=== PATIENT | female | born 1945 | race Caucasian/White ===

== ENCOUNTER 2020-04-21 11:51 | Inpatient (IN) ==
[2020-04-21] MEDS ORDERED: Isovue-370 500 ML BOTTLE IVP ONE (13:22)
[2020-04-21] MEDS ORDERED: *HR* FentaNYL (PF) 100 MCG/2 ML VIAL IVP ONE (13:29)
[2020-04-21] MEDS ORDERED: 0.9 % Sodium Chloride 1,000 ML IVC ONE (13:29)
[2020-04-21] MEDS ORDERED: Ondansetron 4 MG/2 ML VIAL IVP ONE (13:29)
[2020-04-21 13:46] LABS: Basophils % 0.2 %; Eosinophils # 0.1 K/mcL (0.0-0.6); Eosinophils % 0.6 %; Hemoglobin 14.8 g/dL (11.5-15.4); Immature Granulocytes % 0.7 % (0-4); Lymphocytes # 1.1 K/mcL (0.6-4.6); Lymphocytes % 10.7 %; Mean Corpuscular HGB Conc 34.4 g/dL (31.6-35.5); Mean Platelet Volume 10.7 fL (9.4-12.4); Monocytes # 0.4 K/mcL (0.0-1.3); Neutrophils # 8.9 K/mcL (1.6-8.9); Platelet Count 188 K/mcL (140-400); Red Blood Count 4.94 M/mcL (3.82-4.97); Red Cell Distribution Width 13.2 % (11.5-14.5); Segmented Neutrophils % 83.8 %; White Blood Count 10.6 K/mcL (4.3-11.1)
[2020-04-21 13:50] LABS: INR 1.3
[2020-04-21 13:53] LABS: Activated Partial Thrombo Time 33.8 Seconds (26.0-36.0)
[2020-04-21 13:56] LABS: Alanine Aminotransferase 15 Units/L (7-52); Albumin 4.4 g/dL (3.5-5.7); Albumin/Globulin Ratio 1.4 (1.1-2.2); Alkaline Phosphatase 35 Units/L (34-104); Amylase 100 Units/L (29-103); Aspartate Amino Transferase 19 Units/L (13-39); BUN/Creatinine Ratio 20 (6-26); Bilirubin,Direct 0.1 mg/dL (0.0-0.2); Bilirubin,Indirect 0.5 mg/dL (0.0-1.0); Bilirubin,Total 0.6 mg/dL (0.3-1.0); Blood Urea Nitrogen 22 mg/dL (8-23); Carbon Dioxide 26 mEq/L (23-29); Chloride 102 mEq/L (98-107); Globulin 3.2 g/dL (2.4-3.5); Glucose 132 mg/dL (70-105); Lipase 49 Units/L (11-82); Osmolality,Calculated 291 (280-300); Potassium 3.4 mEq/L (3.5-5.1); Sodium 138 mEq/L (136-145); Total Protein 7.6 g/dL (6.4-8.9); Troponin I < 0.03 ng/mL (< 0.04); eGFR For African Americans 58 (> 60); eGFR For Non-African Americans 48 (> 60)
[2020-04-21 14:18] LABS: Bacteria,Urine Few per hpf (None-Few); Bilirubin,Urine Negative (Negative); Blood,Urine Negative (Negative); Clarity,Urine Clear (Clear); Color,Urine Light-Yellow (Yellow); Glucose,Urine (UA) Normal (Normal); Hyaline Casts,Urine Few per lpf (None Seen); Ketones,Urine Negative (Negative); Leukocyte Esterase,Urine Negative (Negative); Mucus,Urine Few per lpf (None-Few); Nitrite,Urine Negative (Negative); PH,Urine 6.5 pH Units (5.0-8.0); Protein,Urine 200 mg/dL (Neg-Trace); RBC,Urine 0-3 per hpf (0-3); Squamous Epithelial Cell,Urine Moderate per hpf (None-Few); Urobilinogen,Urine Normal (Normal); WBC,Urine 0-3 per hpf (0-3)
[2020-04-21] MEDS ORDERED: Morphine Sulfate 2 MG/ML SYRINGE IVP ONE (16:18)
[2020-04-21] MEDS ORDERED: *HR* Metoprolol 5 MG/5 ML VIAL IVP ONE (16:27)
[2020-04-21] MEDS ORDERED: Aspirin 81 MG TAB.CHEW PO ONE (17:27)
[2020-04-21] MEDS: Nitroglycerin 0.4 MG TAB.SUBL SL SCH ×2 (17:58→18:43)
[2020-04-21] MEDS ORDERED: Naloxone 0.4 MG/ML INJ IVP PRN (18:34)
[2020-04-21] MEDS ORDERED: Ondansetron 4 MG/2 ML VIAL IVP PRN (18:34)
[2020-04-21] MEDS ORDERED: Perflutren Lipid Microsphere 1.3 ML in 0.9 % Sodium Chloride 8.7 ML IVP PRN (18:57)
[2020-04-21] MEDS ORDERED: Acetaminophen IV 1,000 MG/100 ML BAG IVPB ONE (19:14)
[2020-04-21] MEDS: Metoprolol 100 MG TABLET PO SCH (20:35)
[2020-04-21] MEDS: 0.9 % Sodium Chloride 1,000 ML IVC SCH (20:36)
[2020-04-22 05:42] LABS: Basophils % 0.1 %; Hematocrit 41.8 % (35.3-44.9); Hemoglobin 14.2 g/dL (11.5-15.4); Immature Granulocytes % 0.7 % (0-4); Lymphocytes # 1.2 K/mcL (0.6-4.6); Lymphocytes % 5.7 %; Mean Corpuscular Hemoglobin 29.5 pg (28.0-33.3); Mean Corpuscular Volume 86.9 fL (83.0-100.0); Mean Platelet Volume 10.5 fL (9.4-12.4); Monocytes # 1.5 K/mcL (0.0-1.3); Monocytes % 7.2 %; Neutrophils # 17.7 K/mcL (1.6-8.9); Platelet Count 225 K/mcL (140-400); Red Blood Count 4.81 M/mcL (3.82-4.97); Red Cell Distribution Width 13.5 % (11.5-14.5); Segmented Neutrophils % 86.3 %
[2020-04-22 05:43] LABS: White Blood Count 20.5 K/mcL (4.3-11.1)
[2020-04-22 06:03] LABS: BUN/Creatinine Ratio 20 (6-26); Blood Urea Nitrogen 21 mg/dL (8-23); Calcium 9.1 mg/dL (8.6-10.3); Carbon Dioxide 22 mEq/L (23-29); Chloride 105 mEq/L (98-107); Glucose 130 mg/dL (70-105); Magnesium 1.5 mg/dL (1.6-2.6); Osmolality,Calculated 291 (280-300); Phosphorous 3.6 mg/dL (2.7-4.5); Potassium 3.8 mEq/L (3.5-5.1); Sodium 138 mEq/L (136-145); eGFR For African Americans > 60 (> 60); eGFR For Non-African Americans 51 (> 60)
[2020-04-22] MEDS ORDERED: *HR* Rivaroxaban 10 MG TABLET PO SCH (09:00)
[2020-04-22] MEDS: 0.9 % Sodium Chloride 1,000 ML IVC SCH ×2 (10:36→23:12)
[2020-04-22] MEDS: hydroCHLOROthiazide 25 MG TABLET PO SCH (12:08)
[2020-04-22] MEDS: Metoprolol 100 MG TABLET PO SCH ×2 (12:09→19:45)
[2020-04-22] MEDS: Ampicillin/Sulbactam 3,000 MG in 0.9 % Sodium Chloride Mini Bag 100 ML IVPB SCH ×2 (18:25→23:13)
[2020-04-23 02:36] LABS: Hematocrit 37.3 % (35.3-44.9); Mean Corpuscular HGB Conc 33.5 g/dL (31.6-35.5); Mean Corpuscular Hemoglobin 29.4 pg (28.0-33.3); Mean Corpuscular Volume 87.8 fL (83.0-100.0); Mean Platelet Volume 10.7 fL (9.4-12.4); Platelet Count 169 K/mcL (140-400); Red Blood Count 4.25 M/mcL (3.82-4.97); Red Cell Distribution Width 13.8 % (11.5-14.5); White Blood Count 19.2 K/mcL (4.3-11.1)
[2020-04-23 02:39] LABS: Hemoglobin 12.5 g/dL (11.5-15.4)
[2020-04-23 02:54] LABS: Alanine Aminotransferase 21 Units/L (7-52); Albumin 3.6 g/dL (3.5-5.7); Albumin/Globulin Ratio 1.1 (1.1-2.2); Alkaline Phosphatase 25 Units/L (34-104); Aspartate Amino Transferase 28 Units/L (13-39); Bilirubin,Total 1.3 mg/dL (0.3-1.0); Blood Urea Nitrogen 20 mg/dL (8-23); Calcium 8.5 mg/dL (8.6-10.3); Carbon Dioxide 24 mEq/L (23-29); Chloride 105 mEq/L (98-107); Globulin 3.2 g/dL (2.4-3.5); Glucose 105 mg/dL (70-105); Osmolality,Calculated 291 (280-300); Potassium 3.3 mEq/L (3.5-5.1); Sodium 139 mEq/L (136-145); Total Protein 6.8 g/dL (6.4-8.9)
[2020-04-23 04:06] LABS: BUN/Creatinine Ratio 19 (6-26); eGFR For African Americans > 60 (> 60); eGFR For Non-African Americans 50 (> 60)
[2020-04-23] MEDS: Ampicillin/Sulbactam 3,000 MG in 0.9 % Sodium Chloride Mini Bag 100 ML IVPB SCH ×4 (05:11→23:02)
[2020-04-23] MEDS: Metoprolol 100 MG TABLET PO SCH ×2 (07:38→19:34)
[2020-04-23] MEDS: hydroCHLOROthiazide 25 MG TABLET PO SCH (07:38)
[2020-04-23] MEDS ORDERED: *HR* HYDROmorphone PF 0.5 MG/0.5 ML SYRINGE IVP PRN (10:48)
[2020-04-23] MEDS ORDERED: *HR* OxyCODONE Immed Rel 5 MG TABLET PO PRN (10:48)
[2020-04-23] MEDS ORDERED: Promethazine 6.25 MG in Water for inj. (sterile) 20 ML IVPB PRN (10:48)
[2020-04-23] MEDS ORDERED: Isovue-300 50ML VIAL ONE (11:00)
[2020-04-23] MEDS ORDERED: CefOXitin 1,000 MG VIAL ONE (11:01)
[2020-04-23] MEDS ORDERED: *HR* FentaNYL (PF) 100 MCG/2 ML VIAL ONE (11:05)
[2020-04-23] MEDS ORDERED: Lidocaine -MPF 2% 2 ML VIAL ONE (11:05)
[2020-04-23] MEDS ORDERED: Ondansetron 4 MG/2 ML VIAL ONE (11:05)
[2020-04-23] MEDS ORDERED: Dexamethasone 4 MG/ML VIAL ONE (11:05)
[2020-04-23] MEDS ORDERED: *HR* Propofol 200 MG/20 ML VIAL IVP ONE (11:05)
[2020-04-23] MEDS ORDERED: *HR* Succinylcholine 200 MG/10 ML VIAL IVP ONE (11:05)
[2020-04-23] MEDS ORDERED: Lidocaine HCL 4 ML Topical Solution (Laryng-O-Jet Kit Sterile Pak) TP ONE (11:05)
[2020-04-23] MEDS ORDERED: *HR* Rocuronium Bromide 50 MG/5 ML VIAL ONE (11:05)
[2020-04-23] MEDS ORDERED: Acetaminophen IV 1,000 MG/100 ML BAG IVPB ONE (11:30)
[2020-04-23] MEDS ORDERED: *HR* HYDROMORPHONE 2 MG/ML VIAL ONE (11:56)
[2020-04-23] MEDS ORDERED: *HR* Labetalol 20 MG/4 ML SYRINGE IVP ONE (12:12)
[2020-04-23] MEDS ORDERED: Naloxone 0.4 MG/ML INJ IVP PRN (13:53)
[2020-04-23] MEDS: 0.9 % Sodium Chloride 1,000 ML IVC SCH ×2 (13:55→17:39)
[2020-04-23] MEDS ORDERED: Potassium Chloride 40 MEQ, Lidocaine 1% 2 ML in 0.9 % Sodium Chloride 500 ML IVPB ONE (17:45)
[2020-04-24 04:32] LABS: Hematocrit 35.5 % (35.3-44.9); Hemoglobin 11.6 g/dL (11.5-15.4); Mean Corpuscular HGB Conc 32.7 g/dL (31.6-35.5); Mean Corpuscular Hemoglobin 28.7 pg (28.0-33.3); Mean Corpuscular Volume 87.9 fL (83.0-100.0); Mean Platelet Volume 10.4 fL (9.4-12.4); Platelet Count 163 K/mcL (140-400); Red Blood Count 4.04 M/mcL (3.82-4.97); Red Cell Distribution Width 13.8 % (11.5-14.5); White Blood Count 15.7 K/mcL (4.3-11.1)
[2020-04-24] MEDS: 0.9 % Sodium Chloride 1,000 ML IVC SCH ×2 (04:51→20:19)
[2020-04-24] MEDS: Ampicillin/Sulbactam 3,000 MG in 0.9 % Sodium Chloride Mini Bag 100 ML IVPB SCH ×4 (04:51→23:32)
[2020-04-24] MEDS: Latanoprost 2.5 ML BOTTLE BOTH EYES SCH ×2 (04:52→20:21)
[2020-04-24 04:53] LABS: Albumin 3.5 g/dL (3.5-5.7); Albumin/Globulin Ratio 1.1 (1.1-2.2); Bilirubin,Total 0.6 mg/dL (0.3-1.0); Calcium 8.2 mg/dL (8.6-10.3); Globulin 3.3 g/dL (2.4-3.5); Total Protein 6.8 g/dL (6.4-8.9)
[2020-04-24] MEDS: Metoprolol 100 MG TABLET PO SCH ×2 (09:59→20:20)
[2020-04-24] MEDS: hydroCHLOROthiazide 25 MG TABLET PO SCH (10:00)
[2020-04-24] MEDS: *HR* Rivaroxaban 10 MG TABLET PO SCH (17:40)
[2020-04-25 01:30] LABS: Hematocrit 34.9 % (35.3-44.9); Hemoglobin 11.4 g/dL (11.5-15.4); Mean Corpuscular HGB Conc 32.7 g/dL (31.6-35.5); Mean Corpuscular Hemoglobin 29.4 pg (28.0-33.3); Mean Corpuscular Volume 89.9 fL (83.0-100.0); Mean Platelet Volume 10.7 fL (9.4-12.4); Platelet Count 197 K/mcL (140-400); Red Blood Count 3.88 M/mcL (3.82-4.97); Red Cell Distribution Width 13.6 % (11.5-14.5); White Blood Count 14.4 K/mcL (4.3-11.1)
[2020-04-25 04:14] LABS: Alanine Aminotransferase 33 Units/L (7-52); Albumin 3.3 g/dL (3.5-5.7); Alkaline Phosphatase 29 Units/L (34-104); Aspartate Amino Transferase 30 Units/L (13-39); BUN/Creatinine Ratio 21 (6-26); Bilirubin,Total 0.5 mg/dL (0.3-1.0); Blood Urea Nitrogen 21 mg/dL (8-23); Carbon Dioxide 26 mEq/L (23-29); Chloride 106 mEq/L (98-107); Globulin 3.2 g/dL (2.4-3.5); Glucose 121 mg/dL (70-105); Osmolality,Calculated 294 (280-300); Potassium 3.5 mEq/L (3.5-5.1); Sodium 140 mEq/L (136-145); Total Protein 6.5 g/dL (6.4-8.9); eGFR For African Americans > 60 (> 60); eGFR For Non-African Americans 55 (> 60)
[2020-04-25] MEDS: Ampicillin/Sulbactam 3,000 MG in 0.9 % Sodium Chloride Mini Bag 100 ML IVPB SCH ×4 (05:39→16:00)
[2020-04-25] MEDS: hydroCHLOROthiazide 25 MG TABLET PO SCH (09:10)
[2020-04-25] MEDS: Metoprolol 100 MG TABLET PO SCH ×2 (09:11→20:41)
[2020-04-25] MEDS: 0.9 % Sodium Chloride 1,000 ML IVC SCH (09:13)
[2020-04-25] MEDS: *HR* Rivaroxaban 10 MG TABLET PO SCH (15:59)
[2020-04-25] MEDS: Latanoprost 2.5 ML BOTTLE BOTH EYES SCH (20:43)
[2020-04-25] MEDS ORDERED: *HR* Labetalol 20 MG/4 ML SYRINGE IVP PRN (23:13)
[2020-04-25] MEDS ORDERED: Ketorolac 15 MG/ML VIAL IVP ONE (23:17)
[2020-04-26] MEDS: Simethicone 80 MG TAB.CHEW PO PRN ×2 (00:04→12:26)
[2020-04-26] MEDS: Ampicillin/Sulbactam 3,000 MG in 0.9 % Sodium Chloride Mini Bag 100 ML IVPB SCH ×4 (00:04→17:53)
[2020-04-26] MEDS: hydroCHLOROthiazide 25 MG TABLET PO SCH (08:24)
[2020-04-26] MEDS: Aspirin 81 MG TAB.CHEW PO SCH (08:24)
[2020-04-26] MEDS: Metoprolol 100 MG TABLET PO SCH ×2 (08:26→20:44)
[2020-04-26 09:13] LABS: Hematocrit 37.7 % (35.3-44.9); Hemoglobin 12.7 g/dL (11.5-15.4); Mean Corpuscular HGB Conc 33.7 g/dL (31.6-35.5); Mean Corpuscular Volume 86.1 fL (83.0-100.0); Mean Platelet Volume 10.2 fL (9.4-12.4); Platelet Count 209 K/mcL (140-400); Red Blood Count 4.38 M/mcL (3.82-4.97); Red Cell Distribution Width 13.2 % (11.5-14.5); White Blood Count 11.9 K/mcL (4.3-11.1)
[2020-04-26 09:32] LABS: Alanine Aminotransferase 69 Units/L (7-52); Albumin 3.5 g/dL (3.5-5.7); Alkaline Phosphatase 67 Units/L (34-104); Aspartate Amino Transferase 61 Units/L (13-39); BUN/Creatinine Ratio 21 (6-26); Bilirubin,Total 2.6 mg/dL (0.3-1.0); Blood Urea Nitrogen 18 mg/dL (8-23); Calcium 8.8 mg/dL (8.6-10.3); Carbon Dioxide 25 mEq/L (23-29); Chloride 102 mEq/L (98-107); Globulin 3.5 g/dL (2.4-3.5); Glucose 143 mg/dL (70-105); Osmolality,Calculated 286 (280-300); Potassium 3.4 mEq/L (3.5-5.1); Sodium 136 mEq/L (136-145); eGFR For African Americans > 60 (> 60); eGFR For Non-African Americans > 60 (> 60)
[2020-04-26] MEDS: *HR* OxyCODONE Immed Rel 5 MG TABLET PO PRN (12:21)
[2020-04-26] MEDS: polyethylene glycoL 3350 17 GM POWD.PACK PO PRN (12:24)
[2020-04-26] MEDS: Ondansetron 4 MG/2 ML VIAL IVP PRN (16:13)
[2020-04-26] MEDS: *HR* Rivaroxaban 10 MG TABLET PO SCH (17:31)
[2020-04-26] MEDS: Acetaminophen IV 1,000 MG/100 ML BAG IVPB SCH ×2 (17:32→23:43)
[2020-04-26] MEDS: Gabapentin 300 MG CAPSULE PO SCH (20:43)
[2020-04-26] MEDS: Latanoprost 2.5 ML BOTTLE BOTH EYES SCH (20:44)
[2020-04-27] MEDS: Ampicillin/Sulbactam 3,000 MG in 0.9 % Sodium Chloride Mini Bag 100 ML IVPB SCH ×4 (00:05→18:16)
[2020-04-27] MEDS: *HR* OxyCODONE Immed Rel 5 MG TABLET PO PRN ×3 (02:11→18:16)
[2020-04-27] MEDS: Acetaminophen IV 1,000 MG/100 ML BAG IVPB SCH ×3 (06:19→18:22)
[2020-04-27 06:44] LABS: Hematocrit 39.3 % (35.3-44.9); Hemoglobin 13.1 g/dL (11.5-15.4); Mean Corpuscular HGB Conc 33.3 g/dL (31.6-35.5); Mean Corpuscular Hemoglobin 29.3 pg (28.0-33.3); Mean Corpuscular Volume 87.9 fL (83.0-100.0); Mean Platelet Volume 10.2 fL (9.4-12.4); Platelet Count 238 K/mcL (140-400); Red Blood Count 4.47 M/mcL (3.82-4.97); Red Cell Distribution Width 13.2 % (11.5-14.5)
[2020-04-27] MEDS: Aspirin 81 MG TAB.CHEW PO SCH (08:35)
[2020-04-27] MEDS: Metoprolol 100 MG TABLET PO SCH ×2 (08:35→21:07)
[2020-04-27] MEDS: hydroCHLOROthiazide 25 MG TABLET PO SCH (08:35)
[2020-04-27 09:47] LABS: Alanine Aminotransferase 68 Units/L (7-52); Albumin 3.4 g/dL (3.5-5.7); Albumin/Globulin Ratio 1.1 (1.1-2.2); Alkaline Phosphatase 64 Units/L (34-104); Aspartate Amino Transferase 58 Units/L (13-39); BUN/Creatinine Ratio 23 (6-26); Bilirubin,Total 3.5 mg/dL (0.3-1.0); Blood Urea Nitrogen 23 mg/dL (8-23); Calcium 8.7 mg/dL (8.6-10.3); Carbon Dioxide 29 mEq/L (23-29); Chloride 99 mEq/L (98-107); Globulin 3.1 g/dL (2.4-3.5); Glucose 134 mg/dL (70-105); Osmolality,Calculated 286 (280-300); Potassium 3.4 mEq/L (3.5-5.1); Sodium 135 mEq/L (136-145); Total Protein 6.5 g/dL (6.4-8.9); eGFR For African Americans > 60 (> 60); eGFR For Non-African Americans 54 (> 60)
[2020-04-27] MEDS: Gabapentin 300 MG CAPSULE PO SCH ×3 (10:37→18:28)
[2020-04-27 15:22] LABS: Hematocrit 36.5 % (35.3-44.9); Hemoglobin 12.2 g/dL (11.5-15.4); Mean Corpuscular HGB Conc 33.4 g/dL (31.6-35.5); Mean Corpuscular Volume 86.7 fL (83.0-100.0); Mean Platelet Volume 10.2 fL (9.4-12.4); Platelet Count 256 K/mcL (140-400); Red Blood Count 4.21 M/mcL (3.82-4.97); Red Cell Distribution Width 13.3 % (11.5-14.5); White Blood Count 15.8 K/mcL (4.3-11.1)
[2020-04-27] MEDS: *HR* Rivaroxaban 10 MG TABLET PO SCH (18:21)
[2020-04-27] MEDS: amLODIPine 5 MG TABLET PO SCH (18:22)
[2020-04-27] MEDS: Simethicone 80 MG TAB.CHEW PO PRN (20:52)
[2020-04-27] MEDS: Latanoprost 2.5 ML BOTTLE BOTH EYES SCH (20:56)
[2020-04-27] MEDS: Morphine Sulfate 2 MG/ML SYRINGE IVP PRN (22:24)
[2020-04-28] MEDS: Acetaminophen IV 1,000 MG/100 ML BAG IVPB SCH ×4 (00:01→18:13)
[2020-04-28] MEDS: Ampicillin/Sulbactam 3,000 MG in 0.9 % Sodium Chloride Mini Bag 100 ML IVPB SCH ×4 (00:20→18:27)
[2020-04-28 02:20] LABS: Hematocrit 36.2 % (35.3-44.9); Mean Corpuscular HGB Conc 33.1 g/dL (31.6-35.5); Mean Corpuscular Hemoglobin 28.7 pg (28.0-33.3); Mean Corpuscular Volume 86.6 fL (83.0-100.0); Mean Platelet Volume 10.2 fL (9.4-12.4); Platelet Count 271 K/mcL (140-400); Red Blood Count 4.18 M/mcL (3.82-4.97); Red Cell Distribution Width 13.3 % (11.5-14.5); White Blood Count 18.7 K/mcL (4.3-11.1)
[2020-04-28 02:40] LABS: Albumin 3.3 g/dL (3.5-5.7); Calcium 8.7 mg/dL (8.6-10.3); Globulin 3.2 g/dL (2.4-3.5); Potassium 3.2 mEq/L (3.5-5.1); Total Protein 6.5 g/dL (6.4-8.9)
[2020-04-28] MEDS: Ondansetron 4 MG/2 ML VIAL IVP PRN (04:59)
[2020-04-28] MEDS: Morphine Sulfate 2 MG/ML SYRINGE IVP PRN ×5 (05:02→22:27)
[2020-04-28] MEDS: Simethicone 80 MG TAB.CHEW PO PRN ×2 (08:11→22:49)
[2020-04-28] MEDS: Metoprolol 100 MG TABLET PO SCH ×2 (08:11→22:26)
[2020-04-28] MEDS: Aspirin 81 MG TAB.CHEW PO SCH (08:11)
[2020-04-28] MEDS: hydroCHLOROthiazide 25 MG TABLET PO SCH (08:12)
[2020-04-28] MEDS: amLODIPine 5 MG TABLET PO SCH (08:12)
[2020-04-28] MEDS: Gabapentin 300 MG CAPSULE PO SCH ×3 (08:13→22:26)
[2020-04-28] MEDS: polyethylene glycoL 3350 17 GM POWD.PACK PO PRN (08:17)
[2020-04-28] MEDS ORDERED: Isovue-370 500 ML BOTTLE IVP ONE (08:43)
[2020-04-28] MEDS ORDERED: Isovue-370 500 ML BOTTLE PO ONE (11:49)
[2020-04-28] MEDS: *HR* Rivaroxaban 10 MG TABLET PO SCH (18:11)
[2020-04-28] MEDS: Latanoprost 2.5 ML BOTTLE BOTH EYES SCH (22:51)
[2020-04-29] MEDS: Acetaminophen IV 1,000 MG/100 ML BAG IVPB SCH ×4 (00:04→16:58)
[2020-04-29] MEDS: Ampicillin/Sulbactam 3,000 MG in 0.9 % Sodium Chloride Mini Bag 100 ML IVPB SCH ×4 (00:24→17:19)
[2020-04-29] MEDS: Ondansetron 4 MG/2 ML VIAL IVP PRN (00:53)
[2020-04-29] MEDS: *HR* OxyCODONE Immed Rel 5 MG TABLET PO PRN ×2 (00:54→05:28)
[2020-04-29] MEDS: Morphine Sulfate 2 MG/ML SYRINGE IVP PRN ×2 (06:18→11:31)
[2020-04-29 06:46] LABS: Hematocrit 38.2 % (35.3-44.9); Hemoglobin 12.5 g/dL (11.5-15.4); Mean Corpuscular HGB Conc 32.7 g/dL (31.6-35.5); Mean Corpuscular Hemoglobin 29.1 pg (28.0-33.3); Mean Platelet Volume 10.4 fL (9.4-12.4); Platelet Count 394 K/mcL (140-400); Red Blood Count 4.29 M/mcL (3.82-4.97); Red Cell Distribution Width 13.8 % (11.5-14.5); White Blood Count 23.5 K/mcL (4.3-11.1)
[2020-04-29 07:07] LABS: Albumin 3.2 g/dL (3.5-5.7); Bilirubin,Direct 1.4 mg/dL (0.0-0.2); Bilirubin,Indirect 1.4 mg/dL (0.0-1.0); Bilirubin,Total 2.8 mg/dL (0.3-1.0); Globulin 3.3 g/dL (2.4-3.5); Total Protein 6.5 g/dL (6.4-8.9)
[2020-04-29 07:08] LABS: Albumin 3.2 g/dL (3.5-5.7); Bilirubin,Total 2.8 mg/dL (0.3-1.0); Calcium 8.8 mg/dL (8.6-10.3); Globulin 3.3 g/dL (2.4-3.5); Total Protein 6.5 g/dL (6.4-8.9)
[2020-04-29] MEDS: Aspirin 81 MG TAB.CHEW PO SCH (07:18)
[2020-04-29] MEDS: hydroCHLOROthiazide 25 MG TABLET PO SCH (07:29)
[2020-04-29] MEDS: Metoprolol 100 MG TABLET PO SCH ×2 (07:30→20:12)
[2020-04-29] MEDS: amLODIPine 5 MG TABLET PO SCH (07:30)
[2020-04-29] MEDS: Gabapentin 300 MG CAPSULE PO SCH (07:30)
[2020-04-29] MEDS ORDERED: *HR* Succinylcholine 200 MG/10 ML VIAL IVP ONE (14:27)
[2020-04-29] MEDS ORDERED: Ondansetron 4 MG/2 ML VIAL ONE (14:27)
[2020-04-29] MEDS ORDERED: Lidocaine -MPF 4% 5 ML AMPUL ONE (14:27)
[2020-04-29] MEDS ORDERED: Dexamethasone 4 MG/ML VIAL ONE (14:27)
[2020-04-29] MEDS ORDERED: Lidocaine -MPF 2% 2 ML VIAL ONE (14:27)
[2020-04-29] MEDS ORDERED: *HR* FentaNYL (PF) 100 MCG/2 ML VIAL ONE (14:28)
[2020-04-29] MEDS ORDERED: *HR* Propofol 200 MG/20 ML VIAL IVP ONE (14:28)
[2020-04-29] MEDS ORDERED: Ringers Solution, Lactated 1,000 ML IVC SCH (15:00)
[2020-04-29] MEDS ORDERED: *HR* PHENYLEPHRINE 1,000 MCG/10 ML SYRINGE IVP ONE (15:24)
[2020-04-29] MEDS ORDERED: EPHEDrine 50 MG/ML VIAL ONE (15:24)
[2020-04-29] MEDS ORDERED: Indomethacin 50 MG SUPP.RECT RC ONE (15:35)
[2020-04-29] MEDS: *HR* Rivaroxaban 10 MG TABLET PO SCH (16:06)
[2020-04-29] MEDS ORDERED: 0.9 % Sodium Chloride 1,000 ML ONE (17:41)
[2020-04-29] MEDS ORDERED: 0.9 % Sodium Chloride 1,000 ML IVC SCH ×2 (17:45)
[2020-04-29] MEDS: Latanoprost 2.5 ML BOTTLE BOTH EYES SCH (20:09)
[2020-04-30] MEDS: Acetaminophen IV 1,000 MG/100 ML BAG IVPB SCH ×4 (00:21→18:22)
[2020-04-30] MEDS: Ampicillin/Sulbactam 3,000 MG in 0.9 % Sodium Chloride Mini Bag 100 ML IVPB SCH ×3 (00:22→18:24)
[2020-04-30 07:43] LABS: Basophils % 0.1 %; Eosinophils % 0.1 %; Immature Granulocytes % 1.6 % (0-4); Lymphocytes # 0.9 K/mcL (0.6-4.6); Lymphocytes % 5.6 %; Mean Corpuscular HGB Conc 31.9 g/dL (31.6-35.5); Mean Corpuscular Hemoglobin 29.1 pg (28.0-33.3); Mean Corpuscular Volume 91.4 fL (83.0-100.0); Mean Platelet Volume 10.5 fL (9.4-12.4); Monocytes # 0.8 K/mcL (0.0-1.3); Monocytes % 5.1 %; Neutrophils # 13.4 K/mcL (1.6-8.9); Platelet Count 283 K/mcL (140-400); Red Cell Distribution Width 13.9 % (11.5-14.5); Segmented Neutrophils % 87.5 %; White Blood Count 15.4 K/mcL (4.3-11.1)
[2020-04-30 07:45] LABS: Hemoglobin 10.2 g/dL (11.5-15.4)
[2020-04-30 07:54] LABS: Albumin 2.9 g/dL (3.5-5.7); Bilirubin,Direct 0.9 mg/dL (0.0-0.2); Bilirubin,Indirect 0.9 mg/dL (0.0-1.0); Bilirubin,Total 1.8 mg/dL (0.3-1.0); Potassium 4.1 mEq/L (3.5-5.1); Total Protein 5.9 g/dL (6.4-8.9)
[2020-04-30] MEDS: amLODIPine 5 MG TABLET PO SCH (10:42)
[2020-04-30] MEDS: Aspirin 81 MG TAB.CHEW PO SCH (10:42)
[2020-04-30] MEDS: Metoprolol 100 MG TABLET PO SCH ×2 (10:42→21:17)
[2020-04-30] MEDS ORDERED: *HR* OxyCODONE Immed Rel 5 MG TABLET PO PRN (10:48)
[2020-04-30 11:06] LABS: Phosphorous 6.4 mg/dL (2.7-4.5); Uric Acid 8.5 mg/dL (2.3-7.6)
[2020-04-30] MEDS ORDERED: *HR* Midazolam HCl 2 MG/2 ML VIAL IVP ONE (11:46)
[2020-04-30] MEDS ORDERED: *HR* FentaNYL (PF) 100 MCG/2 ML VIAL IVP ONE (11:46)
[2020-04-30] MEDS ORDERED: 0.9 % Sodium Chloride 500 ML ONE (11:59)
[2020-04-30 13:14] LABS: Vitamin D 25 Hydroxy 27 ng/mL (30-80)
[2020-04-30] MEDS: 0.9 % Sodium Chloride 1,000 ML IVC SCH (13:18)
[2020-04-30 13:42] LABS: Hepatitis B Surface Antigen Nonreactive (Nonreactive)
[2020-04-30 14:10] LABS: Hepatitis C Virus Antibody Nonreactive (Nonreactive)
[2020-04-30 14:13] LABS: Hepatitis A Antibody IgM Nonreactive (Nonreactive); Hepatitis B Core IgM Nonreactive (Nonreactive)
[2020-04-30] MEDS: Latanoprost 2.5 ML BOTTLE BOTH EYES SCH (21:47)
[2020-05-01] MEDS: 0.9 % Sodium Chloride 1,000 ML IVC SCH (00:35)
[2020-05-01] MEDS: Acetaminophen IV 1,000 MG/100 ML BAG IVPB SCH ×3 (01:01→11:38)
[2020-05-01 03:31] LABS: Basophils % 0.3 %; Eosinophils # 0.3 K/mcL (0.0-0.6); Eosinophils % 2.2 %; Hematocrit 27.7 % (35.3-44.9); Immature Granulocytes % 1.1 % (0-4); Lymphocytes # 1.3 K/mcL (0.6-4.6); Lymphocytes % 8.3 %; Mean Corpuscular HGB Conc 32.5 g/dL (31.6-35.5); Mean Corpuscular Hemoglobin 28.9 pg (28.0-33.3); Mean Corpuscular Volume 89.1 fL (83.0-100.0); Mean Platelet Volume 10.3 fL (9.4-12.4); Monocytes # 1.1 K/mcL (0.0-1.3); Monocytes % 6.9 %; Neutrophils # 12.5 K/mcL (1.6-8.9); Platelet Count 256 K/mcL (140-400); Red Blood Count 3.11 M/mcL (3.82-4.97); Red Cell Distribution Width 14.1 % (11.5-14.5); Segmented Neutrophils % 81.2 %; White Blood Count 15.4 K/mcL (4.3-11.1)
[2020-05-01 03:45] LABS: Calcium 7.5 mg/dL (8.6-10.3); Magnesium 1.9 mg/dL (1.6-2.6); Phosphorous 6.1 mg/dL (2.7-4.5)
[2020-05-01] MEDS: Ampicillin/Sulbactam 3,000 MG in 0.9 % Sodium Chloride Mini Bag 100 ML IVPB SCH ×2 (05:18→17:04)
[2020-05-01 07:04] LABS: Bilirubin,Urine Negative (Negative); Blood,Urine Negative (Negative); Clarity,Urine Ex.Turbid (Clear); Color,Urine Yellow (Yellow); Glucose,Urine (UA) Normal (Normal); Ketones,Urine 10 mg/dL (Negative); Leukocyte Esterase,Urine Negative (Negative); Mucus,Urine Few per lpf (None-Few); Nitrite,Urine Negative (Negative); Protein,Urine 50 mg/dL (Neg-Trace); Specific Gravity,Urine > 1.030 (1.010-1.025); Squamous Epithelial Cell,Urine Many per hpf (None-Few); WBC,Urine 15-30 per hpf (0-3)
[2020-05-01] MEDS ORDERED: 0.9 % Sodium Chloride 250 ML IVC PRN (08:33)
[2020-05-01] MEDS ORDERED: Albumin 25% 25gram/100mL 25 GM/100 ML IV.SOLN IVPB PRN (08:33)
[2020-05-01] MEDS ORDERED: 0.9 % Sodium Chloride 1,000 ML PRIME SCH (08:45)
[2020-05-01] MEDS ORDERED: *HR* Heparin 5,000 UNIT/ML VIAL ONE (08:59)
[2020-05-01] MEDS ORDERED: Heparin 1,000 UNITS/500 mL 500 ML ONE (09:01)
[2020-05-01] MEDS: Metoprolol 100 MG TABLET PO SCH ×2 (09:04→21:13)
[2020-05-01] MEDS: amLODIPine 5 MG TABLET PO SCH (09:04)
[2020-05-01] MEDS: Aspirin 81 MG TAB.CHEW PO SCH (09:04)
[2020-05-01 10:51] LABS: Hepatitis B Surface Antibody 5.95 mIU/mL
[2020-05-01 11:01] LABS: Hepatitis B Surface Antigen Nonreactive (Nonreactive)
[2020-05-01] MEDS ORDERED: Acetaminophen 325 MG TABLET PO PRN (14:26)
[2020-05-01] MEDS ORDERED: *HR* Heparin 10,000 UNIT/10 ML VIAL IV PRN (15:25)
[2020-05-01] MEDS: Latanoprost 2.5 ML BOTTLE BOTH EYES SCH (22:04)
[2020-05-01 22:26] LABS: Sodium, Urine 39.3 mEq/L
[2020-05-02] MEDS: Ampicillin/Sulbactam 3,000 MG in 0.9 % Sodium Chloride Mini Bag 100 ML IVPB SCH ×2 (04:58→18:32)
[2020-05-02 05:18] LABS: Basophils % 0.2 %; Eosinophils # 0.2 K/mcL (0.0-0.6); Eosinophils % 2.2 %; Hematocrit 28.4 % (35.3-44.9); Hemoglobin 9.3 g/dL (11.5-15.4); Immature Granulocytes % 0.7 % (0-4); Lymphocytes # 1.1 K/mcL (0.6-4.6); Lymphocytes % 10.2 %; Mean Corpuscular HGB Conc 32.7 g/dL (31.6-35.5); Mean Corpuscular Hemoglobin 29.7 pg (28.0-33.3); Mean Corpuscular Volume 90.7 fL (83.0-100.0); Mean Platelet Volume 9.6 fL (9.4-12.4); Monocytes # 0.8 K/mcL (0.0-1.3); Neutrophils # 8.5 K/mcL (1.6-8.9); Platelet Count 220 K/mcL (140-400); Red Blood Count 3.13 M/mcL (3.82-4.97); Red Cell Distribution Width 13.8 % (11.5-14.5); Segmented Neutrophils % 79.7 %; White Blood Count 10.7 K/mcL (4.3-11.1)
[2020-05-02 05:38] LABS: Calcium 7.7 mg/dL (8.6-10.3); Magnesium 1.9 mg/dL (1.6-2.6); Phosphorous 4.3 mg/dL (2.7-4.5); Potassium 3.6 mEq/L (3.5-5.1)
[2020-05-02] MEDS ORDERED: 0.9 % Sodium Chloride 250 ML IVC PRN (07:10)
[2020-05-02] MEDS ORDERED: *HR* Heparin 10,000 UNIT/10 ML VIAL ONE (12:45)
[2020-05-02] MEDS: Aspirin 81 MG TAB.CHEW PO SCH (14:20)
[2020-05-02] MEDS: Metoprolol 100 MG TABLET PO SCH ×2 (14:21→22:26)
[2020-05-02] MEDS: amLODIPine 5 MG TABLET PO SCH (14:21)
[2020-05-02] MEDS: Latanoprost 2.5 ML BOTTLE BOTH EYES SCH (22:27)
[2020-05-03] MEDS: Ampicillin/Sulbactam 3,000 MG in 0.9 % Sodium Chloride Mini Bag 100 ML IVPB SCH ×2 (06:13→18:13)
[2020-05-03 06:38] LABS: Basophils % 0.3 %; Eosinophils # 0.3 K/mcL (0.0-0.6); Eosinophils % 2.4 %; Hemoglobin 8.9 g/dL (11.5-15.4); Immature Granulocytes % 0.9 % (0-4); Lymphocytes # 1.4 K/mcL (0.6-4.6); Lymphocytes % 13.6 %; Mean Corpuscular Hemoglobin 28.6 pg (28.0-33.3); Mean Corpuscular Volume 86.8 fL (83.0-100.0); Mean Platelet Volume 9.5 fL (9.4-12.4); Monocytes # 0.8 K/mcL (0.0-1.3); Monocytes % 7.9 %; Neutrophils # 7.7 K/mcL (1.6-8.9); Platelet Count 217 K/mcL (140-400); Red Blood Count 3.11 M/mcL (3.82-4.97); Red Cell Distribution Width 13.7 % (11.5-14.5); Segmented Neutrophils % 74.9 %; White Blood Count 10.3 K/mcL (4.3-11.1)
[2020-05-03 06:53] LABS: Calcium 7.8 mg/dL (8.6-10.3); Magnesium 1.7 mg/dL (1.6-2.6); Phosphorous 2.2 mg/dL (2.7-4.5); Potassium 3.3 mEq/L (3.5-5.1)
[2020-05-03] MEDS ORDERED: Potassium Chloride Elixir 20 MEQ/15 ML UDC PO SCH (08:45)
[2020-05-03] MEDS: Lactobacillus 1 EACH CAP.SPRINK PO SCH ×2 (10:37→20:05)
[2020-05-03] MEDS: Aspirin 81 MG TAB.CHEW PO SCH (10:37)
[2020-05-03] MEDS: Metoprolol 100 MG TABLET PO SCH ×2 (10:37→20:05)
[2020-05-03] MEDS: amLODIPine 5 MG TABLET PO SCH (10:38)
[2020-05-03] MEDS: Ondansetron 4 MG/2 ML VIAL IVP PRN (16:25)
[2020-05-03] MEDS: Latanoprost 2.5 ML BOTTLE BOTH EYES SCH (20:06)
[2020-05-04 03:34] LABS: Basophils % 0.2 %; Eosinophils # 0.3 K/mcL (0.0-0.6); Eosinophils % 2.1 %; Hematocrit 26.9 % (35.3-44.9); Hemoglobin 8.8 g/dL (11.5-15.4); Immature Granulocytes % 0.7 % (0-4); Lymphocytes % 16.8 %; Mean Corpuscular HGB Conc 32.7 g/dL (31.6-35.5); Mean Corpuscular Hemoglobin 29.7 pg (28.0-33.3); Mean Corpuscular Volume 90.9 fL (83.0-100.0); Mean Platelet Volume 9.9 fL (9.4-12.4); Monocytes # 0.8 K/mcL (0.0-1.3); Neutrophils # 8.7 K/mcL (1.6-8.9); Platelet Count 225 K/mcL (140-400); Red Blood Count 2.96 M/mcL (3.82-4.97); Red Cell Distribution Width 13.7 % (11.5-14.5); Segmented Neutrophils % 73.2 %; White Blood Count 11.8 K/mcL (4.3-11.1)
[2020-05-04 03:52] LABS: Calcium 7.8 mg/dL (8.6-10.3); Magnesium 1.7 mg/dL (1.6-2.6); Potassium 3.9 mEq/L (3.5-5.1)
[2020-05-04] MEDS: Ampicillin/Sulbactam 3,000 MG in 0.9 % Sodium Chloride Mini Bag 100 ML IVPB SCH ×3 (06:29→23:40)
[2020-05-04] MEDS: Lactobacillus 1 EACH CAP.SPRINK PO SCH ×2 (09:13→21:08)
[2020-05-04] MEDS: Metoprolol 100 MG TABLET PO SCH ×2 (09:13→21:08)
[2020-05-04] MEDS: amLODIPine 5 MG TABLET PO SCH (09:13)
[2020-05-04] MEDS: Aspirin 81 MG TAB.CHEW PO SCH (09:13)
[2020-05-04] MEDS: Latanoprost 2.5 ML BOTTLE BOTH EYES SCH (21:09)
[2020-05-05] MEDS: Ampicillin/Sulbactam 3,000 MG in 0.9 % Sodium Chloride Mini Bag 100 ML IVPB SCH ×4 (05:50→23:27)
[2020-05-05 07:14] LABS: Basophils % 0.2 %; Eosinophils # 0.3 K/mcL (0.0-0.6); Eosinophils % 2.2 %; Hemoglobin 9.2 g/dL (11.5-15.4); Immature Granulocytes % 0.6 % (0-4); Lymphocytes # 1.6 K/mcL (0.6-4.6); Lymphocytes % 10.9 %; Mean Corpuscular HGB Conc 32.9 g/dL (31.6-35.5); Mean Corpuscular Hemoglobin 30.2 pg (28.0-33.3); Mean Corpuscular Volume 91.8 fL (83.0-100.0); Mean Platelet Volume 10.4 fL (9.4-12.4); Monocytes # 0.9 K/mcL (0.0-1.3); Monocytes % 6.1 %; Neutrophils # 11.4 K/mcL (1.6-8.9); Platelet Count 241 K/mcL (140-400); Red Blood Count 3.05 M/mcL (3.82-4.97); Red Cell Distribution Width 13.9 % (11.5-14.5); White Blood Count 14.3 K/mcL (4.3-11.1)
[2020-05-05] MEDS: Aspirin 81 MG TAB.CHEW PO SCH (09:12)
[2020-05-05] MEDS: amLODIPine 5 MG TABLET PO SCH (09:12)
[2020-05-05] MEDS: Metoprolol 100 MG TABLET PO SCH ×2 (09:12→20:47)
[2020-05-05] MEDS: Lactobacillus 1 EACH CAP.SPRINK PO SCH ×2 (09:12→20:47)
[2020-05-05 10:32] LABS: Calcium 8.2 mg/dL (8.6-10.3); Magnesium 1.7 mg/dL (1.6-2.6); Phosphorous 2.1 mg/dL (2.7-4.5); Potassium 4.4 mEq/L (3.5-5.1)
[2020-05-05] MEDS: Furosemide 20 MG TABLET PO SCH (13:47)
[2020-05-05] MEDS: Latanoprost 2.5 ML BOTTLE BOTH EYES SCH (20:47)
[2020-05-06 04:31] LABS: Basophils % 0.2 %; Eosinophils # 0.3 K/mcL (0.0-0.6); Eosinophils % 1.9 %; Hematocrit 26.3 % (35.3-44.9); Hemoglobin 8.6 g/dL (11.5-15.4); Immature Granulocytes % 0.7 % (0-4); Lymphocytes # 1.4 K/mcL (0.6-4.6); Lymphocytes % 9.4 %; Mean Corpuscular HGB Conc 32.7 g/dL (31.6-35.5); Mean Corpuscular Hemoglobin 29.4 pg (28.0-33.3); Mean Corpuscular Volume 89.8 fL (83.0-100.0); Mean Platelet Volume 9.9 fL (9.4-12.4); Monocytes # 1.1 K/mcL (0.0-1.3); Monocytes % 7.4 %; Neutrophils # 11.8 K/mcL (1.6-8.9); Platelet Count 240 K/mcL (140-400); Red Blood Count 2.93 M/mcL (3.82-4.97); Red Cell Distribution Width 13.9 % (11.5-14.5); Segmented Neutrophils % 80.4 %; White Blood Count 14.6 K/mcL (4.3-11.1)
[2020-05-06 04:49] LABS: Calcium 8.1 mg/dL (8.6-10.3); Magnesium 1.4 mg/dL (1.6-2.6); Phosphorous 2.1 mg/dL (2.7-4.5); Potassium 3.9 mEq/L (3.5-5.1)
[2020-05-06] MEDS: Ampicillin/Sulbactam 3,000 MG in 0.9 % Sodium Chloride Mini Bag 100 ML IVPB SCH ×4 (05:49→23:39)
[2020-05-06] MEDS: Metoprolol 100 MG TABLET PO SCH ×2 (09:14→20:51)
[2020-05-06] MEDS: amLODIPine 5 MG TABLET PO SCH (09:14)
[2020-05-06] MEDS: Lactobacillus 1 EACH CAP.SPRINK PO SCH ×2 (09:14→20:51)
[2020-05-06] MEDS: Furosemide 20 MG TABLET PO SCH (09:16)
[2020-05-06] MEDS: Aspirin 81 MG TAB.CHEW PO SCH (09:16)
[2020-05-06 18:17] LABS: Albumin 3.3 g/dL (3.5-5.7); Bilirubin,Direct 0.3 mg/dL (0.0-0.2); Bilirubin,Indirect 0.4 mg/dL (0.0-1.0); Bilirubin,Total 0.7 mg/dL (0.3-1.0); Globulin 3.3 g/dL (2.4-3.5); Total Protein 6.6 g/dL (6.4-8.9)
[2020-05-06] MEDS: Latanoprost 2.5 ML BOTTLE BOTH EYES SCH (20:52)
[2020-05-07 05:24] LABS: Hematocrit 25.7 % (35.3-44.9); Hemoglobin 8.4 g/dL (11.5-15.4); Mean Corpuscular HGB Conc 32.7 g/dL (31.6-35.5); Mean Corpuscular Hemoglobin 29.4 pg (28.0-33.3); Mean Corpuscular Volume 89.9 fL (83.0-100.0); Platelet Count 264 K/mcL (140-400); Red Blood Count 2.86 M/mcL (3.82-4.97); Red Cell Distribution Width 14.1 % (11.5-14.5); White Blood Count 16.3 K/mcL (4.3-11.1)
[2020-05-07 05:43] LABS: BUN/Creatinine Ratio 19 (6-26); Blood Urea Nitrogen 20 mg/dL (8-23); Carbon Dioxide 24 mEq/L (23-29); Chloride 107 mEq/L (98-107); Glucose 121 mg/dL (70-105); Magnesium 1.7 mg/dL (1.6-2.6); Osmolality,Calculated 288 (280-300); Potassium 4.6 mEq/L (3.5-5.1); Sodium 137 mEq/L (136-145); eGFR For African Americans > 60 (> 60); eGFR For Non-African Americans 52 (> 60)
[2020-05-07 05:45] LABS: Bilirubin,Direct 0.3 mg/dL (0.0-0.2); Bilirubin,Indirect 0.4 mg/dL (0.0-1.0); Bilirubin,Total 0.7 mg/dL (0.3-1.0)
[2020-05-07] MEDS: Ampicillin/Sulbactam 3,000 MG in 0.9 % Sodium Chloride Mini Bag 100 ML IVPB SCH ×2 (06:32→11:22)
[2020-05-07] MEDS: Aspirin 81 MG TAB.CHEW PO SCH (08:42)
[2020-05-07] MEDS: amLODIPine 5 MG TABLET PO SCH (08:43)
[2020-05-07] MEDS: Metoprolol 100 MG TABLET PO SCH (08:43)
[2020-05-07] MEDS: Lactobacillus 1 EACH CAP.SPRINK PO SCH (08:43)
[2020-05-07] MEDS: Furosemide 20 MG TABLET PO SCH (08:43)
[2020-05-07 15:25] VITALS: BP 153/77
== END 2020-05-07 16:50 | disposition home or self-care (01) | DRG 853 ==
LOC: EMEROOARM 11:51 → 3BNU 11:51 → SUATTDRO 18:02 → 3BNU 19:38 → SUATTDRO 04-22 15:22 → 3BNU 04-26 16:41 → 3ANU 04-29 22:20
PROVIDERS: ADMIT Internal Medicine; ATTEND Internal Medicine
PROC: IRDRAIN (2020-04-30 12:00)